=== PATIENT | female | born 1975 | race Caucasian/White ===

== ENCOUNTER 2017-12-05 21:57 | Emergency (ER) | payer OTHER ==
[~2017-12-05] VITALS: Ht 167.6 cm; Wt 59.0 kg
[2017-12-05 22:58] LABS: ALBUMIN 4.3 g/dL (3.2-4.8); CHLORIDE 97 mEq/L (99-109); POTASSIUM 2.9 mEq/L (3.7-5.4); SODIUM 136 mEq/L (136-147)
[2017-12-05 23:00] LABS: GLUCOSE 98 mg/dL (70-99); TOTAL PROTEIN 6.8 g/dL (6.4-8.3)
[2017-12-05 23:04] LABS: ALKALINE PHOSPHATASE 48 IU/L (3-129); CREATININE 0.7 mg/dL (0.6-1.3); GFR ESTIMATE (CALCULATED) > 59 mL/min/
[2017-12-05 23:05] LABS: UREA NITROGEN (BUN) 8 mg/dL (9-23)
[2017-12-05 23:06] LABS: AST (GOT) 66 IU/L (2-34)
[2017-12-05 23:07] LABS: ALT (GPT) 39 IU/L (3-49); LIPASE 25 U/L (1.0-51.0)
[2017-12-05 23:15] LABS: QUANTITATIVE HCG < 4.0 MIU/ML
[2017-12-05 23:28] LABS: HEMATOCRIT 40.6 % (36.0-46.0); HEMOGLOBIN 15.4 G/DL (11.9-15.5); MCH 34.8 PG (29.0-34.0); MCHC 37.9 G/DL (30.0-36.0); MCV 91.9 FL (83-99); PLATELET COUNT 171 K/uL (156-360); RBC DIS.WIDTH-CV 12.4 % (11.8-14.6); RBC DIS.WIDTH-SD 41.6 % (39-53); RED BLOOD COUNT 4.42 M/uL (3.80-5.20)
[2017-12-06] MEDS ORDERED: ZOFRAN ODT4 MG PO (01:28)
[2017-12-06] MEDS ORDERED: K-DUR20 MEQ PO (01:28)
[2017-12-06 02:01] VITALS: BP 154/88
== END 2017-12-06 02:36 | disposition home or self-care (01) ==
LOC: EME → EDBD 21:57 → EME 12-06 02:36
PROVIDERS: Physician Assistant
DX: R11.2 Nausea with vomiting, unspecified (principal); E86.0 Dehydration; E87.6 Hypokalemia; F41.9 Anxiety disorder, unspecified; F17.200 Nicotine dependence, unspecified, uncomplicated
CPT/HCPCS: 80053; 81003; 83690; 84702; 85027; 93005; 99281; 99285; J2405; J2765; J3480; J7030; S0028